=== PATIENT | female | born 1965 | race Caucasian/White ===

== ENCOUNTER → 2021-02-02 | Day surgery (SDC) | payer OTHER ==
[~2021-02-02] VITALS: Ht 160 cm; Wt 80.7 kg
[~2021-02-02] MED LIST: ACETAMINOPHEN500 M1 PEG; ACETAMINOPHEN500 M1 PO; ATORVASTATIN CA10 MG PO; AUGMENTIN 875-1 EACH PO; FLUOXETINE HCL20 MG PEG; JEVITY 1.5 CA1500 ML PEG; LEVOTHYROXINE50 MCG PEG; MELOXICAM15 MG PEG; MONTELUKAST SOD10 MG PO; OXY-IR 5MG5 MG PO; ROBAXIN500 MG PO; VITAMIN B125000 MCG PO; VITAMIN D325 MCG PO; ZYRTEC10 MG PEG
--- NOTE | 2021-02-02 13:45 | NUR ---
SPOKE WITH DR. NEWBERRY REGARDING [facility] UNABLE TO SEE PATIENT. DR. NEWBERRY VERBALIZES OK FOR [facility] TO SEND PATIENT HOME WITH IRRAGATION KIT AND GIVE INSTRUCTIONS AND DEMONSTRATION TO PT AND FAMILY ON USE AND WOUND CARE OF PEG SITE. ALSO DR. NEWBERRY VERBALZIES PT DOES NOT NEED TO USE ABDOMINAL BINDER FOR HOME USE.
== END | disposition home or self-care (01) ==
LOC: FAS 07:57
DX: R13.10 Dysphagia, unspecified (principal); G31.09 Other frontotemporal neurocognitive disorder; F02.80 Dementia in other diseases classified elsewhere, unspecified severity, without behavioral disturbance, psychotic disturbance, mood disturbance, and anxiety; F41.9 Anxiety disorder, unspecified; F17.210 Nicotine dependence, cigarettes, uncomplicated; F32.9 Major depressive disorder, single episode, unspecified; M19.90 Unspecified osteoarthritis, unspecified site; J44.9 Chronic obstructive pulmonary disease, unspecified; J45.909 Unspecified asthma, uncomplicated; E03.9 Hypothyroidism, unspecified; E78.00 Pure hypercholesterolemia, unspecified; G43.709 Chronic migraine without aura, not intractable, without status migrainosus; R47.01 Aphasia; Z88.5 Allergy status to narcotic agent; Z20.822 Contact with and (suspected) exposure to COVID-19; Z79.899 Other long term (current) drug therapy; Z82.49 Family history of ischemic heart disease and other diseases of the circulatory system
CPT/HCPCS: J0690; J2250; J2704; J7120

== ENCOUNTER 2021-05-12 16:04 | Inpatient (IN) | payer OTHER ==
[~2021-05-12] VITALS: Ht 157.5 cm; Wt 73.2 kg
[~2021-05-12 16:04] MED LIST changes: -ACETAMINOPHEN500 M1 PEG; -AUGMENTIN 875-1 EACH PO; -JEVITY 1.5 CA1500 ML PEG; -ZYRTEC10 MG PEG
[2021-05-12 17:54] LABS: BASOPHIL 0.3 % (0-2); EOSINOPHIL 0 % (0-5); HCT 47.2 % (37.0-47.0); HGB 15.7 g/dl (12.5-16.0); LYMPHOCYTE 1.3 % (15-48); MCH 30.6 pg (25.0-31.0); MCHC 33.3 g/dL (32.0-36.0); MONOCYTE 4.5 % (0-12); MPV 11.3 fL (6.0-9.5); NRBC 0; PLT 246 K/uL (150-400); RBC 5.13 M/uL (4.20-5.40); RDW 12.2 % (11.5-14.0); WBC 25.6 K/uL (4.0-10.5)
[2021-05-12 17:59] LABS: NEUTROPHIL 93.4 % (41-80)
[2021-05-12 18:12] LABS: ALBUMIN 3.9 g/dL (3.4-5.0); BILIRUBIN - TOTAL 0.9 mg/dL (0.2-1.0); BUN/CREAT RATIO (CALC) 29.6 RATIO; C-REACTIVE PROTEIN 1.2 mg/dL (<=0.90); CREATININE 0.54 mg/dL (0.51-0.95); GLOBULIN (CALCULATION) 3.9 g/dL; TOTAL PROTEIN 7.8 g/dL (6.4-8.2)
[2021-05-12 18:36] LABS: LACTIC ACID 2.1 mmol/L (0.4-1.9)
[2021-05-13] MEDS ORDERED: ACETAMINOPHEN500 M1 PEG (00:31)
[2021-05-13] MEDS ORDERED: ZYRTEC10 MG PEG (00:37)
[2021-05-13] MEDS ORDERED: JEVITY 1.5 CA1500 ML PEG (00:39)
[2021-05-13 03:59] LABS: BILIRUBIN NEGATIVE (NEGATIVE); BLOOD NEGATIVE Ery/uL (NEGATIVE); CLARITY CLEAR (CLEAR); COLOR YELLOW (YELLOW); GLUCOSE (U) NORMAL (NORMAL); LEUKOCYTES NEGATIVE Leu/uL (NEGATIVE); NITRITE NEGATIVE (NEGATIVE); PROTEIN NEGATIVE (NEGATIVE); UROBILINOGEN 0.2 mg/dL (0.2-1.0)
[2021-05-13 05:55] LABS: BASOPHIL 0.2 % (0-2); EOSINOPHIL 0.2 % (0-5); HCT 38.3 % (37.0-47.0); HGB 12.8 g/dl (12.5-16.0); LYMPHOCYTE 4.6 % (15-48); MCH 31.3 pg (25.0-31.0); MCHC 33.4 g/dL (32.0-36.0); MCV 93.6 fL (78.0-100.0); MONOCYTE 4.4 % (0-12); MPV 11.6 fL (6.0-9.5); NRBC 0; PLT 205 K/uL (150-400); RBC 4.09 M/uL (4.20-5.40); RDW 12.5 % (11.5-14.0); WBC 25.3 K/uL (4.0-10.5)
[2021-05-13 06:03] LABS: CREATININE 0.59 mg/dL (0.51-0.95); POTASSIUM 3.6 mmol/L (3.5-5.1)
[2021-05-14 06:24] LABS: BASOPHIL 0.5 % (0-2); EOSINOPHIL 0.3 % (0-5); HCT 38.2 % (37.0-47.0); HGB 12.3 g/dl (12.5-16.0); LYMPHOCYTE 12.2 % (15-48); MCH 30.8 pg (25.0-31.0); MCHC 32.2 g/dL (32.0-36.0); MCV 95.5 fL (78.0-100.0); MONOCYTE 5.9 % (0-12); MPV 11.2 fL (6.0-9.5); NEUTROPHIL 80.7 % (41-80); NRBC 0; PLT 173 K/uL (150-400); RDW 12.9 % (11.5-14.0); WBC 12.9 K/uL (4.0-10.5)
[2021-05-14 07:03] LABS: ALBUMIN 3.2 g/dL (3.4-5.0); BILIRUBIN - TOTAL 0.8 mg/dL (0.2-1.0); BUN/CREAT RATIO (CALC) 21.8 RATIO; CREATININE 0.55 mg/dL (0.51-0.95); GLOBULIN (CALCULATION) 2.9 g/dL; POTASSIUM 3.5 mmol/L (3.5-5.1); TOTAL PROTEIN 6.1 g/dL (6.4-8.2)
[2021-05-15 06:20] LABS: BASOPHIL 0.5 % (0-2); EOSINOPHIL 0.6 % (0-5); HCT 34.3 % (37.0-47.0); HGB 11.3 g/dl (12.5-16.0); LYMPHOCYTE 17.9 % (15-48); MCH 30.8 pg (25.0-31.0); MCHC 32.9 g/dL (32.0-36.0); MCV 93.5 fL (78.0-100.0); MONOCYTE 5.3 % (0-12); MPV 11.2 fL (6.0-9.5); NEUTROPHIL 74.4 % (41-80); NRBC 0; PLT 162 K/uL (150-400); RBC 3.67 M/uL (4.20-5.40); RDW 12.3 % (11.5-14.0); RETICULOCYTE COUNT 1.7 % (1.0-2.0); WBC 8.6 K/uL (4.0-10.5)
[2021-05-15 06:52] LABS: IRON % SATURATION 22.5 %SAT (20-50)
[2021-05-15 08:03] LABS: ALBUMIN 2.7 g/dL (3.4-5.0); BILIRUBIN - TOTAL 0.8 mg/dL (0.2-1.0); CREATININE 0.46 mg/dL (0.51-0.95); FOLIC ACID (SERUM) 8.7 ng/mL (8.6-58.9); GLOBULIN (CALCULATION) 3.3 g/dL; MAGNESIUM 1.6 mg/dL (1.8-2.4); PHOSPHORUS 2.9 mg/dL (2.6-4.7); POTASSIUM 2.8 mmol/L (3.5-5.1)
[2021-05-16 06:42] LABS: BUN/CREAT RATIO (CALC) 10.2 RATIO; CREATININE 0.49 mg/dL (0.51-0.95); POTASSIUM 3.3 mmol/L (3.5-5.1)
[2021-05-16 07:20] LABS: MAGNESIUM 2.3 mg/dL (1.8-2.4)
--- NOTE | 2021-05-16 12:32 | NUR ---
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 She lives alone. However, she has around the clock care. Her 2 daughters are supportive. Her neighbor / friend is a MEMBERSHIP MANAGER and assist with care. The neighbor on the other side is also supportive. [facility] is current and family wishes to continue their services. Ms. Perales has an emrgency alert system. - Family is in the application process for a Medicaid Waiver program. They have requested assistance in getting her [employer] changed to traditional Medicaid. - They were advised to go to the Medicaid Office. [facility] was requested to include a social services counselor to assist. - [facility] was notified of discharge for today. [facility] will arrange the tube feeding and supplies. - A referral was made to [facility] for a hospital bed, 3in1, and portable suction. - A report was given to MS Maritza, RN.
[2021-05-16] MEDS ORDERED: AUGMENTIN 875-1 EACH PO ×2 (17:08→17:11)
== END 2021-05-16 18:10 | disposition home health service (06) | DRG 871 ==
LOC: FER 16:04 → FMS 19:16
PROVIDERS: Internal Medicine; Nurse Practitioner; ADMIT Internal Medicine
DX: A41.9 Sepsis, unspecified organism (principal); J69.0 Pneumonitis due to inhalation of food and vomit; J18.9 Pneumonia, unspecified organism; J96.01 Acute respiratory failure with hypoxia; E87.2 Acidosis; E87.0 Hyperosmolality and hypernatremia; R47.01 Aphasia; Z20.822 Contact with and (suspected) exposure to COVID-19; R65.20 Severe sepsis without septic shock; K80.20 Calculus of gallbladder without cholecystitis without obstruction; F03.90 Unspecified dementia, unspecified severity, without behavioral disturbance, psychotic disturbance, mood disturbance, and anxiety; K83.8 Other specified diseases of biliary tract; E03.9 Hypothyroidism, unspecified; H91.90 Unspecified hearing loss, unspecified ear; Z98.890 Other specified postprocedural states; Z98.51 Tubal ligation status; Z93.1 Gastrostomy status; Z79.890 Hormone replacement therapy; Z79.899 Other long term (current) drug therapy
CPT/HCPCS: 36415; 36600; 70450; 71045; 71250; 72125; 76705; 80048; 80053; 81003; 82607; 82746; 82803; 83540; 83550; 83605; 83690; 83735; 84100; 84145; 85025; 86140; 87040; 94010; 94640; 94664; 94668; 97161; 97166; 97535; J1170; J1650; J2543; J2550; J2916; J3360; J3475; J7030; J7050; U0002